=== PATIENT | male | born 1960 | race Caucasian/White ===

== ENCOUNTER 2019-07-04 17:51 | Emergency (ER) | payer MEDICAID ==
[2019-07-04] MEDS ORDERED: Acetaminophen/HYDROcodone 325-5 MG Tab PO ONE (18:27)
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
[2019-07-04] MEDS ORDERED: Cephalexin 500 MG Cap PO ONE (19:04)
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
== END 2019-07-04 19:29 | disposition home or self-care (01) ==
LOC: FB.ED 17:51
DX: S62.650A Nondisplaced fracture of middle phalanx of right index finger, initial encounter for closed fracture (principal); S67.190A Crushing injury of right index finger, initial encounter; L03.011 Cellulitis of right finger; I10 Essential (primary) hypertension; F17.210 Nicotine dependence, cigarettes, uncomplicated; W23.0XXA Caught, crushed, jammed, or pinched between moving objects, initial encounter
CPT/HCPCS: 73140; 99283; A9270